=== PATIENT | female | born 1960 | race Caucasian/White ===

== ENCOUNTER 2016-09-17 22:20 | Emergency (ER) | payer OTHER ==
--- NOTE | 2016-09-18 02:26 | ED NURSING NOTES ---
Clinical Report - Nurses [facility] [address] [place] [address] 09/17/2016 22:23 Patient: DOREEN DONALDSON TRIAGE Triage time 23:00. Acuity: LEVEL 4. Chief Complaint: (hemmorrhoid). Alert. No acute distress. SEPSIS SCREEN: Sepsis Screen. Negative (no infection suspected/documented). ANNETTE COMA SCORE: [place] Coma Scale: 15- eyes open spontaneously (4); best verbal response- oriented x 4 (5); best motor response- obeys commands (6). --23:12 Rebekah Brian R.N. 23:04 09/17/16. BP: 141/62. HR: 75. RR: 16. O2 saturation: 97%. Temp: 98.1 F. Pain level now: 11/02. --23:12 Rebekah Brian R.N. Weight: 81.6 kg stated. Height/Length: 66 inches Per Patient. BMI: 29. --23:12 Rebekah Brian R.N. Medications Aspirin Low Strength Oral. --23:08 Rebekah Brian R.N. Lisinopril Oral. --23:08 Rebekah Brian R.N. Amlodipine. --23:08 Rebekah Brian R.N. Daily Vitamin Oral. --23:08 Rebekah Brian R.N. Claritin Oral. --23:08 Rebekah Brian R.N. Pantoprazole Sodium Oral. --23:09 Rebekah Brian R.N. Atorvastatin Calcium Oral. --23:09 Rebekah Brian R.N. Nitroglycerin Sublingual. --23:09 Rebekah Brian R.N. Allergies NSAIDs. Penicillins. Percocet.(nausea) Vicodin.(nausea) Zoloft. --23:10 Rebekah Brian R.N. History Arrived by private vehicle. Historian: patient. Accompanied by family. This started today. ( Patient states "I had a rather large bowel movement this afternoon and now I have a hemmorrhoid". Patient reports a hx of hemmorrhoids. She states she can see the hemmorrhoid). PAST MEDICAL HX: Immunizations: up-to-date. Denies current . SOCIAL HX: Heavy tobacco smoker- less than 1 pack per day. No alcohol use or drug use. FALL RISK ASSESSMENT: Fall risk assessment completed. No fall risk identified. NUTRITIONAL RISK ASSESSMENT: The nutritional risk assessment revealed no deficiencies. FUNCTIONAL ASSESSMENT: Functional assessment: no impairments noted. LEARNING NEEDS ASSESSMENT: The learning needs assessment revealed no barriers. SKIN INTEGRITY ASSESSMENT: Skin integrity risk assessment completed. No skin integrity risk identified. --23:12 Rebekah Brian R.N. Interventions ID band on patient. To treatment room. --23:12 Rebekah Brian R.N. PHYSICAL ASSESSMENT 23:13 09/17/16. Ambulatory to room. GENERAL / NEURO / PSYCH: Alert. Oriented X 4. Appears in no acute distress. HEENT: Pupils equal, round and reactive to light. No facial asymmetry noted. Mucous membranes are pink. RESPIRATORY: Respirations not labored. CVS: Capillary refill less than 2 seconds. Pulses within normal limits. GI / : Abdomen soft and nontender. SKIN: Skin intact. Skin is warm and dry. Normal skin turgor. --23:13 Rebekah Brian R.N. NURSING PROGRESS NOTES 23:13 09/17/16. Patient gowned. Two patient identifiers checked. Call light placed in reach. Side rails up x 1. Bed placed in lowest position. Brakes of bed on. Patient ready for evaluation- chart flagged and notification provided. --23:13 Rebekah Brian R.N. ( Patient ambulated to 's room - is also a patient.). --23:50 Rebekah Brian R.N. Patient informed about reason for wait and about plan of care. --00:35 Rebekah Brian R.N. 00:34 09/18/16. BP: 112/50 taken on the left arm, while lying. HR: 70. RR: 15. O2 saturation: 97%. Temp: deferred. Pain level now: 07/03. --00:35 Rebekah Brian R.N. <<STRICKEN ENTRY-- ( Patient hooked back up to iv fluids after returning from CT.). --00:38 Rebekah Brian R.N. --END STRIKE>> Charted On Wrong Patient --00:38 Rebekah Brian R.N. 01:32 09/18/2016 Toradol (Ketorolac Tromethamine) IM 60 mg given. Given in the right anterior lateral thigh. Allergies verified and confirmed 5 rights. --01:42 Rebekah Brian R.N. 01:45 09/18/16. ( Patient tearful about not getting "medication to relax" her prior to lidocaine injection. She states, "every time this has happened before I get medication that makes me relaxed." Patient requested to come to room. was notified that patient requests his presence.). --01:45 Rebekah Brian R.N. DISPOSITION / DISCHARGE 02:15. The patient left the Emergency Department without completion of treatment; patient was accompanied by spouse. The patient appears to be alert and oriented x4 (anxious). She notified the ED staff prior to leaving the department and stated is leaving the ED (fear of pain during procedure). Notified the ED physician of patient departure. Prior to leaving the ED, she was advised to stay for completion of treatment and return if needed. She was informed of the risks of leaving and verbalized understanding of these risks. Patient signed form prior to leaving. She left the Emergency Department ambulatory and via private vehicle. --02:49 Rebekah Brian R.N. 02:15 09/18/16. BP: deferred due to patient not present. HR: deferred due to patient not present. RR: deferred due to patient not present. O2 saturation: deferred due to patient not present. Temp: deferred due to patient not present. Pain level now deferred due to patient not present. --02:49 Rebekah Brian R.N. Locked/Released at 09/18/2016 2:50 by Rebekah Brian R.N.
--- NOTE | 2016-09-18 02:26 | ED ORDER SUMMARY ---
..... Patient: DOREEN DONALDSON OrderSheet [facility] VisitID: [id number] [address] [place] [address] 55y, F Registration Date/Time: 09/17/2016 ORDER SHEET Weight: 81.6 kg (stated) Allergies: NSAIDs, Penicillins, Percocet, Vicodin, Zoloft GENERAL ORDERS: MEDICATION ORDERS: Toradol IM 60 mg (NOW) (01:41 09/18/2016 Adair Gilbert verbal order read back to Pat ISLAS) (1:42 Adair Gilbert) IV FLUIDS: ORDER SHEET NOTES: [Electronically signed by Rebekah Brian R.N. (02:50 09/18/2016)] [Electronically signed by Alan Adkins MD (09:01 10/05/2016)] [Electronically locked/signed by Rebekah Brian R.N. (02:50 09/18/2016)]
--- NOTE | 2016-09-18 02:26 | ED ORDER SUMMARY ---
..... Patient: DOREEN DONALDSON OrderSheet [facility] VisitID: [id number] [address] [place] [address] 55y, F Registration Date/Time: 09/17/2016 ORDER SHEET Weight: 81.6 kg (stated) Allergies: NSAIDs, Penicillins, Percocet, Vicodin, Zoloft GENERAL ORDERS: MEDICATION ORDERS: Toradol IM 60 mg (NOW) (01:41 09/18/2016 Adair Gilbert verbal order read back to Pat ISLAS) (1:42 Adair Gilbert) IV FLUIDS: ORDER SHEET NOTES: [Electronically signed by Rebekah Brian R.N. (02:50 09/18/2016)] [Electronically signed by Alan Adkins MD (09:01 10/05/2016)] [Electronically locked/signed by Rebekah Brian R.N. (02:50 09/18/2016)]
--- NOTE | 2016-09-18 02:26 | ED CLINICAL REPORT ---
Clinical Report - Physicians/Mid Levels [facility] [address] [place] [address] 09/17/2016 22:23 Patient: DOREEN DONALDSON Time Seen: 01:20. Arrived- By private vehicle. Historian- patient. HISTORY OF PRESENT ILLNESS Chief Complaint: HEMORRHOIDS. This started yesterday and is still present. It was abrupt in onset and has been constant. The patient has had rectal pain, constipation and hard stools but not had dark stools or rectal bleeding. Similar symptoms previously: Several times. Diagnosis: hemorrhoids. REVIEW OF SYSTEMS No chills, fever, sweats, calf pain or chest pain. No cough, difficulty breathing, pedal edema, palpitations or abdominal pain. No constipation, diarrhea, nausea, vomiting or urinary problems. All systems otherwise negative, except as recorded above. PAST HISTORY Problems: Acute Pain. Myocardial Infarction. Constipation. Hemorrhoids. Additional Surgeries: Appendectomy. Breast Augmentation. Carpal Tunnel Surgery. Cholecystectomy. Hysterectomy. Laparoscopy. Tonsillectomy. Medications: Nitroglycerin Sublingual. Atorvastatin Calcium Oral. Pantoprazole Sodium Oral. Claritin Oral. Daily Vitamin Oral. Amlodipine. Lisinopril Oral. Aspirin Low Strength Oral. Allergies: NSAIDs. Penicillins. Percocet.(nausea) Vicodin.(nausea) Zoloft. SOCIAL HISTORY Current every day heavy tobacco smoker (cigarette)- less than 1 pack per day. No alcohol use or drug use. FAMILY HISTORY Denies family medical history. ADDITIONAL NOTES The nursing notes have been reviewed. PHYSICAL EXAM Vital Signs: 09/17/2016 23:04 BP: 141/62. HR: 75. RR: 16. O2 saturation: 97%. Temp: 98.1 F. Pain level now: 8/10. Appearance: Alert. Eyes: Pupils equal, round and reactive to light. ENT: Pharynx normal. Neck: Normal inspection. Neck supple. CVS: Normal heart rate and rhythm. Heart sounds normal. Respiratory: No respiratory distress. Decreased air movement. Abdomen: Soft and nontender. Bowel sounds normal. No organomegaly. No mass. Back: Normal inspection. Rectal: Thrombosed external hemorrhoids (large). 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 Skin: Skin warm and dry. Normal skin color. No rash. Extremities: Extremities exhibit normal ROM. No calf tenderness. No lower extremity edema. PROGRESS AND PROCEDURES Course of Care: The patient insisted that she be given Dilaudid for her discomfort. I explained that I would not use scheduled drugs but that I would use am analgesia for the procedure if she wishes to have a hemorrhoid procedure performed, She became very agitated and insisite. Patient/family counseled. Old medical records ordered. CLINICAL IMPRESSION Thrombosed external hemorrhoids (Electronically signed by Alan Adkins MD 10/05/2016 9:01)
--- NOTE | 2016-09-18 02:26 | ED CLINICAL REPORT ---
Clinical Report - Physicians/Mid Levels [facility] [address] [place] [address] 09/17/2016 22:23 Patient: DOREEN DONALDSON Time Seen: 01:20. Arrived- By private vehicle. Historian- patient. HISTORY OF PRESENT ILLNESS Chief Complaint: HEMORRHOIDS. This started yesterday and is still present. It was abrupt in onset and has been constant. The patient has had rectal pain, constipation and hard stools but not had dark stools or rectal bleeding. Similar symptoms previously: Several times. Diagnosis: hemorrhoids. REVIEW OF SYSTEMS No chills, fever, sweats, calf pain or chest pain. No cough, difficulty breathing, pedal edema, palpitations or abdominal pain. No constipation, diarrhea, nausea, vomiting or urinary problems. All systems otherwise negative, except as recorded above. PAST HISTORY Problems: Acute Pain. Myocardial Infarction. Constipation. Hemorrhoids. Additional Surgeries: Appendectomy. Breast Augmentation. Carpal Tunnel Surgery. Cholecystectomy. Hysterectomy. Laparoscopy. Tonsillectomy. Medications: Nitroglycerin Sublingual. Atorvastatin Calcium Oral. Pantoprazole Sodium Oral. Claritin Oral. Daily Vitamin Oral. Amlodipine. Lisinopril Oral. Aspirin Low Strength Oral. Allergies: NSAIDs. Penicillins. Percocet.(nausea) Vicodin.(nausea) Zoloft. SOCIAL HISTORY Current every day heavy tobacco smoker (cigarette)- less than 1 pack per day. No alcohol use or drug use. FAMILY HISTORY Denies family medical history. ADDITIONAL NOTES The nursing notes have been reviewed. PHYSICAL EXAM Vital Signs: 09/17/2016 23:04 BP: 141/62. HR: 75. RR: 16. O2 saturation: 97%. Temp: 98.1 F. Pain level now: 8/10. Appearance: Alert. Eyes: Pupils equal, round and reactive to light. ENT: Pharynx normal. Neck: Normal inspection. Neck supple. CVS: Normal heart rate and rhythm. Heart sounds normal. Respiratory: No respiratory distress. Decreased air movement. Abdomen: Soft and nontender. Bowel sounds normal. No organomegaly. No mass. Back: Normal inspection. Rectal: Thrombosed external hemorrhoids (large). 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 Skin: Skin warm and dry. Normal skin color. No rash. Extremities: Extremities exhibit normal ROM. No calf tenderness. No lower extremity edema. PROGRESS AND PROCEDURES Course of Care: The patient insisted that she be given Dilaudid for her discomfort. I explained that I would not use scheduled drugs but that I would use am analgesia for the procedure if she wishes to have a hemorrhoid procedure performed, She became very agitated and insisite. Patient/family counseled. Old medical records ordered. CLINICAL IMPRESSION Thrombosed external hemorrhoids (Electronically signed by Alan Adkins MD 10/05/2016 9:01)
--- NOTE | 2016-10-05 09:01 | ED DISCHARGE INSTRUCTIONS ---
Patient: DOREEN DONALDSON General Instructions [facility] VisitID: [id number] [place] [address] 55y, F Registration Date/Time: 09/17/2016 Thrombosed external hemorrhoids ADDITIONAL INFORMATION Hemorrhoids,External A hemorrhoid is a local swelling of the veins around the rectum. These most often occur from repeated forceful straining during bowel movements or heavy lifting. It may also occur in the last few months of . A hemorrhoid feels like a soft lump. It may itch from time to time. When it is inflamed it becomes hard and very painful. Home Care: SITZ BATHS: Sit in a tub filled with about 6 inches of hot water. Allow the water to run in order to keep it hot for a total of 10-15 minutes. Repeat this three times a day until pain is relieved. Keep your stools soft to avoid the need to strain when having a bowel movement. Unless another medicine was prescribed, try the following: IF YOU ARE CONSTIPATED: You may use mxcw-jcm-jjuzixr laxatives such as MILK OF MAGNESIA (mild acting) or, DULCOLAX (if stronger action is needed). IF YOU ARE NOT CONSTIPATED but stools are hard, try taking Colace (docusate sodium) which is a stool softener. This will soften stools without producing diarrhea. Drinking extra fluids may also help. The use of creams applied to the hemorrhoid itself, such as ANUSOL or PREPARATION H, will be helpful to reduce pain and itching, and speed healing. Prevention: Avoid straining on the toilet by keeping stools soft. Increasing FIBER in your diet (fruits, cereals, vegetables and grains) will promote healthy bowel movement. If this is not working, you may use METAMUCIL and similar products. These are wxvn-ibq-delosxe fiber supplements. You must drink extra fluids when taking these to avoid constipation. Follow Up with your doctor if you do not begin to respond to the above treatment within the next few days. Get Prompt Medical Attention if any of the following occur: Large amount of rectal bleeding (more than 1 cup of blood in 24 hours) Increasing rectal pain or rectal pain that continues for more than three days of treatment Weakness, dizziness or fainting Vomiting blood (red or black color) You have been given the following additional information: Hemorrhoids (Electronically signed by Alan Adkins MD 10/05/2016 9:01)
--- NOTE | 2016-10-05 09:01 | ED MAR SUMMARY ---
..... Medication Administration Record [facility] [address] [place] [address] Patient: DOREEN DONALDSON Visit ID: [id number] 55y, F Weight: 81.6 kg Height/Length: 66 in BMI: 29 ALLERGIES: NSAIDs, Penicillins, Percocet, Vicodin, Zoloft Given 01:32 09/18/2016 Rebekah Brian R.N. Medication Administered: TORADOL [IM] (KETOROLAC TROMETHAMINE), Dose: 60 mg IM. Medication Ordered: Toradol IM 60 mg (NOW).
--- NOTE | 2016-10-05 09:01 | ED MED RECONCILIATION SUMMARY ---
Patient: DOREEN DONALDSON Medication Reconciliation Report [facility] VisitID: [id number] [address] [place] [address] 55y, F Registration Date/Time: 09/17/2016 Weight: 81.6 kg Height/Length: 66 in. BMI: 29.0 ALLERGIES: NSAIDs, Penicillins, Percocet, Vicodin, Zoloft The patient's Home Medications are listed below: THE FOLLOWING MEDICATIONS NEED TO BE RECONCILED: Amlodipine Aspirin Low Strength Oral Atorvastatin Calcium Oral Claritin Oral Daily Vitamin Oral Lisinopril Oral Nitroglycerin Sublingual Pantoprazole Sodium Oral The source(s) of the original Home Medication information: Not obtained. The following Medications were given to the patient in the Emergency Department: Toradol [IM] IM 60 mg, administered: 09/18/2016 1:32:00 AM The following Medications were prescribed to the patient: None.
--- NOTE | 2016-10-05 09:01 | ED MED RECONCILIATION SUMMARY ---
Patient: DOREEN DONALDSON Medication Reconciliation Report [facility] VisitID: [id number] [address] [place] [address] 55y, F Registration Date/Time: 09/17/2016 Weight: 81.6 kg Height/Length: 66 in. BMI: 29.0 ALLERGIES: NSAIDs, Penicillins, Percocet, Vicodin, Zoloft The patient's Home Medications are listed below: THE FOLLOWING MEDICATIONS NEED TO BE RECONCILED: Amlodipine Aspirin Low Strength Oral Atorvastatin Calcium Oral Claritin Oral Daily Vitamin Oral Lisinopril Oral Nitroglycerin Sublingual Pantoprazole Sodium Oral The source(s) of the original Home Medication information: Not obtained. The following Medications were given to the patient in the Emergency Department: Toradol [IM] IM 60 mg, administered: 09/18/2016 1:32:00 AM The following Medications were prescribed to the patient: None.
--- NOTE | 2016-10-05 09:01 | ED DISCHARGE INSTRUCTIONS ---
Patient: DOREEN DONALDSON General Instructions [facility] VisitID: [id number] [place] [address] 55y, F Registration Date/Time: 09/17/2016 Thrombosed external hemorrhoids ADDITIONAL INFORMATION Hemorrhoids,External A hemorrhoid is a local swelling of the veins around the rectum. These most often occur from repeated forceful straining during bowel movements or heavy lifting. It may also occur in the last few months of . A hemorrhoid feels like a soft lump. It may itch from time to time. When it is inflamed it becomes hard and very painful. Home Care: SITZ BATHS: Sit in a tub filled with about 6 inches of hot water. Allow the water to run in order to keep it hot for a total of 10-15 minutes. Repeat this three times a day until pain is relieved. Keep your stools soft to avoid the need to strain when having a bowel movement. Unless another medicine was prescribed, try the following: IF YOU ARE CONSTIPATED: You may use cdtb-cjc-jkhoqvp laxatives such as MILK OF MAGNESIA (mild acting) or, DULCOLAX (if stronger action is needed). IF YOU ARE NOT CONSTIPATED but stools are hard, try taking Colace (docusate sodium) which is a stool softener. This will soften stools without producing diarrhea. Drinking extra fluids may also help. The use of creams applied to the hemorrhoid itself, such as ANUSOL or PREPARATION H, will be helpful to reduce pain and itching, and speed healing. Prevention: Avoid straining on the toilet by keeping stools soft. Increasing FIBER in your diet (fruits, cereals, vegetables and grains) will promote healthy bowel movement. If this is not working, you may use METAMUCIL and similar products. These are ekrv-vuv-cthaynv fiber supplements. You must drink extra fluids when taking these to avoid constipation. Follow Up with your doctor if you do not begin to respond to the above treatment within the next few days. Get Prompt Medical Attention if any of the following occur: Large amount of rectal bleeding (more than 1 cup of blood in 24 hours) Increasing rectal pain or rectal pain that continues for more than three days of treatment Weakness, dizziness or fainting Vomiting blood (red or black color) You have been given the following additional information: Hemorrhoids (Electronically signed by Alan Adkins MD 10/05/2016 9:01)
--- NOTE | 2016-10-05 09:01 | ED MAR SUMMARY ---
..... Medication Administration Record [facility] [address] [place] [address] Patient: DOREEN DONALDSON Visit ID: [id number] 55y, F Weight: 81.6 kg Height/Length: 66 in BMI: 29 ALLERGIES: NSAIDs, Penicillins, Percocet, Vicodin, Zoloft Given 01:32 09/18/2016 Rebekah Brian R.N. Medication Administered: TORADOL [IM] (KETOROLAC TROMETHAMINE), Dose: 60 mg IM. Medication Ordered: Toradol IM 60 mg (NOW).
== END 2016-09-18 02:15 | disposition left against medical advice (07) ==
LOC: ED SRH 22:20
DX: K64.5 Perianal venous thrombosis (principal); F17.210 Nicotine dependence, cigarettes, uncomplicated; Z79.899 Other long term (current) drug therapy; Z88.5 Allergy status to narcotic agent; Z88.0 Allergy status to penicillin; Z88.8 Allergy status to other drugs, medicaments and biological substances